=== PATIENT | male | born 1965 | race African-American/Black ===

== ENCOUNTER 2020-05-26 12:41 | Emergency (ER) | payer SELFPAY ==
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
[2020-05-26 12:45] VITALS: BP 183/113; PULSE 78; RESP 22; TEMP 36.4; O2SAT 100
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
[2020-05-26] MEDS: ONDANSETRON HCL ODT 4 MG TABLET PO (13:32)
[2020-05-26] MEDS: MORPHINE SULFATE INJ (*CRX) 10 MG/ML AMP IM (13:32)
[2020-05-26 13:39] VITALS: BP 169/107
--- NOTE | 2020-05-26 13:56 | PC.NURSE ---
patient given pain meds. reviewed with patient. patient updated with current treatment plan and expected wait time. will contact radiology for time of xray.
--- NOTE | 2020-05-26 14:02 | PC.NURSE ---
patient to CT
[2020-05-26 14:39] VITALS: BP 177/127
[2020-05-26] MEDS: ACETAMINOPHEN 500 MG TABLET 1000 MG PO (15:30)
[2020-05-26] MEDS: diazePAM INJ (*CRX) 10 MG/2 ML SYRINGE 5 MG IM (15:31)
[2020-05-26 15:50] VITALS: BP 147/103
[2020-05-26 16:28] VITALS: BP 145/99; PULSE 88; RESP 18; TEMP 36.8; O2SAT 99
--- NOTE | 2020-05-26 22:54 | PC.NURSE ---
patient still with pain after morphine. no significant relief. sitting in chair in room. friend at bedside. additional meds ordered.
== END 2020-05-26 16:30 | disposition home or self-care (01) ==
PROVIDERS: Emergency Provider Emergency Medicine; PCP Family Medicine
DX: S16.1XXA Strain of muscle, fascia and tendon at neck level, initial encounter (principal); I10 Essential (primary) hypertension; M47.812 Spondylosis without myelopathy or radiculopathy, cervical region; M47.816 Spondylosis without myelopathy or radiculopathy, lumbar region; M47.814 Spondylosis without myelopathy or radiculopathy, thoracic region; V49.50XA Passenger injured in collision with unspecified motor vehicles in traffic accident, initial encounter
CPT/HCPCS: 72125; 72128; 72131; 96372; 99284; A9270; J2270; J3360